=== PATIENT | female | born 2000 | race Caucasian/White ===

== ENCOUNTER 2019-02-25 22:43 | Emergency (ER) | payer OTHER ==
[2019-02-25 23:25] LABS: ABS Eosinophils 0.1 10^3/ul (0-0.6); ABS Lymphocytes 2.7 10^3/ul (1.0-4.8); ABS Monocytes 0.6 10^3/ul (0-0.8); ABS Neutrophils 6.3 10^3/ul (1.5-7.7); Eosinophil % 0.5 %; Hematocrit 41 % (35-47); Hemoglobin 13.1 g/dL (12.0-16.0); Lymphocyte % 28.2 %; Mean Corpuscular HGB Conc 32 g/dL (31-36); Mean Corpuscular Hemoglobin 25 pg (27-31); Mean Corpuscular Volume 76 fL (80-97); Mean Platelet Volume 8.4 fL (7.4-10.4); Nucleated Red Blood Cells % 0.1; Platelet Count 272 10^3/uL (150-450); Red Blood Count 5.31 10^6 /uL (3.70-4.87); Red Cell Distribution Width 18 % (10-15); White Blood Count 9.7 10^3/uL (3.5-10.8)
--- NOTE | 2019-02-25 23:27 | ED ---
Head Injury - HPI Summary HPI Summary: Patient is a 18 y/o F presenting to [facility] under 2209 status. Per triage, "Reports drinking a water bottle full of vodka". Patient's friends are present in room with patient. It is reported that the patient experienced two head injuries today, 02/25/19. Patient experienced the first head injury while sledding. It is noted that during the second episode, the patient was in an elevator, fell, and hit her head. Patient's friends state that the patient had LOC for five minutes. Patient claims that she just "fell asleep" after falling but also notes that she does not have memory of her head injury episodes. On triage, pain is denied. Home medications and allergies are reviewed. - History Of Current Complaint Chief Complaint: EDSubstanceAbuse Stated Complaint: 2209 PER EMS Time Seen by Provider: 02/25/19 22:51 Hx Obtained From: Patient, Other: - friends Mechanism Of Injury: Fall From A Standing Position Onset/Duration: Started Hours Ago Severity Currently: None Pain Intensity: 0 Pain Scale Used: 0-10 Numeric Associated Signs And Symptoms: LOC (Time In Secs./Mins/Hrs) - reported by friends, patient denies, Other: - alcohol intox - Allergies/Home Medications Allergies/Adverse Reactions: Allergies Allergy/AdvReac Type Severity Reaction Status Date / Time No Known Allergies Allergy Verified 02/25/19 22:46 Home Medications: Home Medications NK [No Home Medications Reported] 02/25/19 [History Confirmed 02/25/19] PMH/Surg Hx/FS Hx/Imm Hx Sensory History: Denies: Hx Legally Blind, Hx Deafness Opthamlomology History: Denies: Hx Legally Blind EENT History: Denies: Hx Deafness Infectious Disease History: No Infectious Disease History: Denies: Traveled Outside the [place] in Last 30 Days - Family History Known Family History: Negative: Seizure Disorder - Social History Occupation: Student Lives: Dormitory/Roommates Alcohol Use: Occasionally Review of Systems Constitutional: Other - positive - alcohol intox Musculoskeletal: Other - positive - fall Neurological: Other - positive - head injury, LOC All Other Systems Reviewed And Are Negative: Yes Physical Exam - Summary Physical Exam Summary: General: Well-developed, Thin-appearing female. No acute distress. HEENT: Normocephalic, Atraumatic. Eyes: Conjuctiva normal, PERRL. Ears: TMs within normal limits. Nares: (-) discharge, (-) erythema. Oropharynx: Clear, mucous membranes moist, (-) exudates. Neck: Soft, FROM, (-) lymphadenopathy, (-) thyromegaly, (-) JVD. Cardiovascular: Normal sinus rhythm, (-) murmur. Lungs: Clear to auscultation bilaterally (-) wheezes, (-) rales, (-) rhonchi. Abdomen: Soft, non-tender, non-distended, (-) organomegaly, normal bowel sounds. Back: (-) CVA tenderness Extremities: No edema. Skin: Warm, dry, (-) rash. Neuro: Alert and oriented x3, Slightly confused, slurring words, unstable gait, GCS 15. Psychiatric: Mood normal, affect normal. Triage Information Reviewed: Yes Vital Signs On Initial Exam: Initial Vitals Temp Pulse Resp BP Pulse Ox 97.8 F 91 18 118/72 96 02/25/19 22:44 02/25/19 22:44 02/25/19 22:44 02/25/19 22:44 02/25/19 22:44 Vital Signs Reviewed: Yes Procedures - Sedation Patient Received Moderate/Deep Sedation with Procedure: No Diagnostics - Vital Signs Vital Signs Temp Pulse Resp BP Pulse Ox 02/25/19 22:44 97.8 F 91 18 118/72 96 - Laboratory Result Diagrams: 02/25/19 23:09 02/25/19 23:09 Lab Statement: Any lab studies that have been ordered have been reviewed, and results considered in the medical decision making process. - CT BRAIN CT CT Interpretation Completed By: Radiologist Summary of CT Findings: IMPRESSION: No acute intracranial abnormality. THIS REPORT WAS REVIEWED BY DR. FERREIRA. Re-Evaluation - Re-Evaluation First Eval Re-Evaluation Time: 06:15 Comment: Patient was capable of ambulation with a steady gait. Patient's roommate is coming to ED to provide safe ride home. Head Injury Course/Dx Course Of Treatment: 18-year-old female presents with head trauma and loss of consciousness after alcohol ingestion. Patient will initially quite uncooperative. Refusing workup and CAT scan's. Patient's alcohol returned to 99. Patient's friends convinced her to allow workup. After significant period of time patient was more sober. Ambulating well. Alert and oriented 3. Sober friend picked her up to take her home. Follow-up with PCP. Follow sooner for any worsening symptoms. - Diagnoses Provider Diagnoses: Alcohol intoxication, Head trauma, LOC (loss of consciousness) Discharge ED - Sign-Out/Discharge Documenting (check all that apply): Patient Departure - discharge - Discharge Plan Condition: Stable Disposition: HOME Patient Education Materials: Head Injury (ED), Alcohol Intoxication (ED) Referrals: [facility] [Primary Care Provider] - 3 Days Additional Instructions: Please follow up with your primary care physician within three days. Please return to ED for any new or worsening symptoms. - Billing Disposition and Condition Condition: STABLE Disposition: Home - Attestation Statements Document Initiated by Poli: Yes Documenting Scribe: ECTOR CHAMBERS Provider For Whom Poli is Documenting (Include Credential): KATELYNN FERREIRA MD Scribe Attestation: ECTOR Terry, scribed for KATELYNN FERREIRA MD on 02/28/19 at 1942. Scribe Documentation Reviewed: Yes Provider Attestation: The documentation as recorded by the ECTOR pappas accurately reflects the service I personally performed and the decisions made by me, KATELYNN EFRREIRA MD Status of Scribe Document: Viewed
[2019-02-25 23:37] LABS: CO2 Carbon Dioxide 17 mmol/L (22-32); Calcium 9.7 mg/dL (8.6-10.3); Potassium 3.7 mmol/L (3.5-5.0); Sodium 142 mmol/L (135-145)
[2019-02-25 23:43] LABS: ALT 13 U/L (7-52); AST 20 U/L (13-39); Albumin/Globulin Ratio 1.4 (1-3); Alkaline Phosphatase 90 U/L (34-104); BUN/Creatinine Ratio 20.3 (8-20); Blood Urea Nitrogen 13 mg/dL (6-24); EGFR African American 144.6 (>60); EGFR Non-African American 119.5 (>60); Globulin 3.5 g/dL (2-4); Glucose 98 mg/dL (70-100); Total Protein 8.5 g/dL (6.4-8.9)
[2019-02-25 23:44] LABS: Anion Gap 13 mmol/L (2-11); Chloride 112 mmol/L (101-111)
[2019-02-25 23:48] LABS: Acetaminophen < 15 mcg/mL; Alcohol 299 mg/dL (<10); Salicylate < 2.50 mg/dL (<30)
[2019-02-25 23:57] LABS: HCG Pregnancy < 0.60 mIU/mL
[2019-02-26 00:52] LABS: TSH (Thyroid Stimulating Horm) 2.28 mcIU/mL (0.34-5.60)
[2019-02-26 06:49] VITALS: BP 115/84
== END 2019-02-26 06:48 | disposition home or self-care (01) ==
LOC: ED 22:43
DX: F10.129 Alcohol abuse with intoxication, unspecified (principal); S06.9X1A Unspecified intracranial injury with loss of consciousness of 30 minutes or less, initial encounter; W19.XXXA Unspecified fall, initial encounter; Y92.89 Other specified places as the place of occurrence of the external cause
CPT/HCPCS: 36415; 70450; 80053; 80320; 80329; 83605; 84443; 84702; 85025; 93005; 99284; G0480